=== PATIENT | female | born 1955 | race Caucasian/White ===

== ENCOUNTER → 2016-08-06 | Outpatient (CLI) | payer BC | END | disposition home or self-care (01) | LOC: PCVCIMAG 11:37 | PROVIDERS: ATTEND Internal Medicine Cardiovascular Disease | DX: I25.10 Atherosclerotic heart disease of native coronary artery without angina pectoris (principal); E11.9 Type 2 diabetes mellitus without complications; I10 Essential (primary) hypertension; R60.9 Edema, unspecified; R53.83 Other fatigue | CPT/HCPCS: 93005; 93306; G0463 ==

== ENCOUNTER → 2017-02-22 | Outpatient (CLI) | payer BC ==
--- NOTE | 2017-02-22 15:15 | PCVCIMAG ---
EXAM: BILATERAL LOWER EXTREMITY ARTERIAL DUPLEX INDICATION: Peripheral Arterial Disease. Leg pain. FINDINGS: Right Leg: Satisfactory arterial waveforms throughout the common/profunda/superficial femoral, popliteal, anterior tibial, peroneal, and posterior tibial arteries. No flow limiting stenosis seen. Left Leg: Satisfactory arterial waveforms throughout the common/profunda/superficial femoral, popliteal, anterior tibial, peroneal, and posterior tibial arteries. No flow limiting stenosis seen. IMPRESSION: No flow limiting stenosis in the right lower extremity. No flow limiting stenosis in the left lower extremity. LOC:[id number]
== END | disposition home or self-care (01) ==
LOC: PCVCIMAG 11:02
PROVIDERS: ATTEND Internal Medicine Cardiovascular Disease
DX: I73.9 Peripheral vascular disease, unspecified (principal); M79.605 Pain in left leg; M79.604 Pain in right leg
CPT/HCPCS: 93925

== ENCOUNTER → 2018-03-24 | Outpatient (CLI) | payer BC ==
--- NOTE | 2018-03-24 10:02 | PCVCIMAG ---
APPROVED REPORT Study performed: 03/24/2018 08:39:52 EXAM: Comprehensive 2D, Doppler, and color-flow Echocardiogram Patient Location: Echo lab Status: routine BSA: 1.87 HR: 63 bpmBP: 176/84 mmHg Rhythm: NSR Other Information Study Quality: Adequate Risk Factors: Cardiac Risk Factors: HTN Indications COPD Diabetes CAD RCA stent 2D Dimensions IVSd: 12.42 (7-11mm)LVOT Diam: 21.09 (18-24mm) LVDd: 44.21 mm PWd: 12.58 (7-11mm)Ascending Ao: 28.97 (22-36mm) LVDs: 35.01 (25-40mm) Left Atrium: 45.39 (27-40mm) Aortic Root: 26.21 mm LV Single Plane 4CH: 62.71 % LV Single Plane 2CH: 68.18 % Biplane EF: 65.4 % Volumes Left Atrial Volume (Systole) Single Plane 4CH: 100.28 mLSingle Plane 2CH: 82.70 mL LA ESV Index: 50.00 mL/m2 Aortic Valve AoV Peak Felix.: 2.57 m/s AO Peak Gr.: 26.33 mmHgLVOT Max P.47 mmHg AO Mean Gr.: 11.75 mmHgLVOT Mean P.78 mmHg AO V2 Mean: 1.58 m/sLVOT Max V: 1.54 m/s AO V2 VTI: 54.84 cmLVOT Mean V: 1.02 m/s BRYSON (VTI): 2.13 [id number] V1 VTI: 33.50 cm BRYSON Vmax: 2.09 cm2 AI Vmax: 4.53 m/sSV (LVOT): 117.00 mL AI [place]: 2.74 m/s2 AI PHT: 479.60 ms Mitral Valve E/A Ratio: 0.8 MV Decel. Time: 244.16 ms MV E Max Feilx.: 0.98 m/s MV A Felix.: 1.17 m/s IVRT: 86.51 ms Pulmonary Valve PV Peak Felix.: 1.30 m/sPV Peak Gr.: 6.79 mmHg Pulmonary Vein P Vein S: 0.35 m/sP Vein A: 0.29 m/s P Vein D: 0.47 m/sP Vein A Dur.: 128.0 msec P Vein S/D Ratio: 0.74 Tricuspid Valve TR Peak Felix.: 2.62 m/s TR Peak Gr.: 27.40 mmHg TV Vmax: 0.49 m/s Left Ventricle The left ventricle is normal size. There is normal LV segmental wall motion. Mild concentric left ventricular hypertrophy. Left ventricular systolic function is normal. The left ventricular ejection fraction is within the normal range. LVEF is 60-65%. Grade II - pseudonormal filling dynamics. Right Ventricle The right ventricle is normal size. The right ventricular systolic function is normal. Atria Left atrium is moderately dilated. The right atrium size is normal. Aortic Valve The aortic valve is mildly sclerotic. Mild to moderate aortic regurgitation. There is no aortic valvular stenosis. Mitral Valve The mitral valve is normal in structure. Mild to moderate mitral regurgitation. No evidence of mitral valve stenosis. Tricuspid Valve The tricuspid valve is normal in structure. Mild tricuspid regurgitation with PAP of 34 mmHg. Pulmonic Valve The pulmonary valve is normal in structure. There is mild pulmonic valvular regurgitation. Great Vessels The aortic root is normal in size. IVC is normal in size and collapses >50% with inspiration. Pericardium There is no pericardial effusion. There is no pleural effusion. <Conclusion> The left ventricle is normal size. Mild concentric left ventricular hypertrophy. Left ventricular systolic function is normal. Grade II - pseudonormal filling dynamics. The right ventricle is normal size. Left atrium is moderately dilated. Mild to moderate aortic regurgitation. Mild to moderate mitral regurgitation. Mild tricuspid regurgitation with PAP of 34 mmHg.
== END | disposition home or self-care (01) ==
LOC: PCVCIMAG 10:50
PROVIDERS: ATTEND Internal Medicine Cardiovascular Disease
DX: I08.3 Combined rheumatic disorders of mitral, aortic and tricuspid valves (principal); I25.10 Atherosclerotic heart disease of native coronary artery without angina pectoris; I10 Essential (primary) hypertension; R60.0 Localized edema; J44.9 Chronic obstructive pulmonary disease, unspecified; E11.9 Type 2 diabetes mellitus without complications
CPT/HCPCS: 93306